=== PATIENT | male | born 1950 | race Caucasian/White ===

== ENCOUNTER → 2017-06-09 | Outpatient (CLI) | payer MEDICARE, OTHER ==
[~2017-06-09] VITALS: Ht 177.8 cm; Wt 109.3 kg
[2017-06-09] VITALS (11 sets, daily range): BP systolic 120–144; BP diastolic 60–85
[~2017-06-09] MED LIST: ALBUTEROL2.5 MG/31 INH; ASPIR 8181 MG PO; BRILINTA90 MG PO; CLARITIN10 MG PO; COZAAR 50 MG TA50 M2 PO; EYE HEALTH ADU1 EACH PO; LEVSIN0.125 MG PO; LIPITOR80 MG PO; LISINOPRIL-HCT1 EACH PO; NITROGLYCERIN0.4 MG SUBLING; TESSALON PERLE100 MG PO; ZANTAC 150MG T150 MG PO; ZOLOFT50 MG PO
[2017-06-09 08:09] LABS: HEMATOCRIT 41.9 % (42.0-52.0); HEMOGLOBIN 14.3 gm/dL (14.0-18.0); MCH 30.5 pg (26.0-34.0); MCHC 34.2 g/dL (28.0-37.0); MCV 89.3 fL (80.0-100.0); MPV 8.2 fl. (7.2-11.1); RBC 4.69 mil/uL (4.50-6.00); RDW-CV 14.4 % (10.5-14.5); WBC 8.3 thou/uL (4.0-11.0)
[2017-06-09 08:17] LABS: ANION GAP 11 mmol/L (7-16); BUN 20 mg/dL (7-18); CALCIUM 8.6 mg/dL (8.5-10.1); CHLORIDE 104 mmol/L (98-107); CO2 25 mmol/L (21-32); CREATININE 0.9 mg/dL (0.6-1.3); GLUCOSE 131 mg/dL (70-99); POTASSIUM 3.7 mmol/L (3.5-5.1); SODIUM 140 mmol/L (136-145)
[2017-06-09 08:18] LABS: APTT 28.7 Seconds (25.0-31.3); PROTIME 10.2 Seconds (9.20-11.50)
[2017-06-09 08:21] LABS: ALBUMIN 3.8 g/dL (3.4-5.0); ALKALINE PHOSPHATASE 110 U/L (46-116); CHOLESTEROL 143 mg/dL (<200); HDL CHOLESTEROL 44 mg/dL (>40); LDL CHOLESTEROL 75 mg/dL (<100); SGOT 28 U/L (15-37); SGPT 39 U/L (30-65); TC:HDL 3.3 Ratio (Not establshd); TOTAL BILIRUBIN 0.7 mg/dL (<0.1-1.0); TOTAL PROTEIN 7.3 g/dL (6.4-8.2); TRIGLYCERIDE 120 mg/dL (<150); VLDL 24 mg/dL (<40)
[2017-06-09 08:22] LABS: SERUM ASSESSMENT Clear
[2017-06-09 12:19] LABS: HEMOGLOBIN 13.9 gm/dL (14.0-18.0); MCH 30.4 pg (26.0-34.0); MCHC 33.9 g/dL (28.0-37.0); MCV 89.6 fL (80.0-100.0); MPV 7.9 fl. (7.2-11.1); RBC 4.58 mil/uL (4.50-6.00); RDW-CV 14.6 % (10.5-14.5); WBC 7.9 thou/uL (4.0-11.0)
--- NOTE | 2017-06-09 17:28 | EKG ---
[place] [address] ELECTROCARDIOGRAM REPORT Name: MAURIZIO FRASER Room: [facility]#: [id number] Admission: 06/09/17 Attend Phys: Lewis Chapa MD, F Discharge: Date of : 52 Report #: [id number] THIS REPORT FOR: //name// [facility] Test Date: 2017-06-09 Test Time: 10:53:20 Pat Name: MAURIZIO FRASER Department: Room: Gender: M Manpower Development Specialist: : 1950 Requested By: Lewis Chapa Order Number: [id number] Dante MD: Lewis Chapa Measurements Intervals [place] Rate: 51 P: 34 ID: 169 QRS: -41 QRSD: 96 T: 56 QT: 443 QTc: 409 Interpretive Statements Sinus bradycardia consider Inferior infarct, old Compared to ECG 02/05/2017 07:29:19 no change Electronically Signed On 06-09-2017 17:28:05 CDT by Lewis Chapa [email or web address] <ELECTRONICALLY SIGNED> By: Lewis Chapa MD, [facility] 06/09/17 1728 1053 52 Lewis Chapa MD, FACC /EPI
--- NOTE | 2017-06-09 18:50 | CARD ---
[address] [address] CARDIAC CATH REPORT Name: MAURIZIO FRASER Room: [facility] JAYA SalazarDennys#: [id number] Admission: 06/09/17 Attend Phys: Lewis Chapa MD, F Discharge: Date of : 52 Report #: [id number] THIS REPORT FOR: //name// APPROVED REPORT Study performed: 06/09/2017 07:48:10 Patient Details Patient Status: Out-Patient Room #: The patient is a 66 year-old male Event Personnel Lewis Chapa Chain Person, June Regalado RN Rod Buster, Jaleesa Fried Monitor, Becky Monroy RTR Scrub Procedures Performed Art Access - R radial artery , Left Heart Catheterization, Selective Right and Left Coronary Angiography, PTCA with Stenting Indication Dyspnea, Chest pain Risk Factors Hypercholesterolemia Previous Procedures/Diagnoses Previous PCI Admission/Lab Medications/Medications given during procedure Heparin Unfract. Procedure Narrative The patient was brought electively to the Cardiac Catheterization Laboratory and was prepped and draped in a sterile manner. The right wrist was infiltrated with 1% Lidocaine subcutaneous anesthesia. A Slender Glidesheath sheath was inserted into the right radial artery. Coronary angiography was performed using coronary diagnostic catheters. The right coronary system was accessed and visualized with a Diagnostic JR 4 6fr catheter. The left coronary system was accessed and visualized with a Diagnostic JL 4 6fr catheter. The left ventricle was accessed and visualized with a Diagnostic catheter. Left ventricular/Aortic Valve gradient assessed via catheter pullback. Left ventriculogram was performed in PIERRE projection. Closure device was deployed with a 6 Fr Vasc-Band Lng 27cm[place] [address] CARDIAC CATH REPORT Name: MAURIZIO FRASER [id number] Admission: 06/09/17 Attend Phys: Lewis Chapa MD, F Discharge: Date of : 52 Report #: [id number] patient tolerated the procedure well and there were no complications associated with the procedure. There was no hematoma. Intraoperative Conscious Sedation Sedation start time: 8:45 Case end Time: 9:34 Versed 2 mg Fluoro Time: 7.3 minutes Dose: DAP 031629 cGycm2 2003.67 mGy Contrast Type and Amount: Omnipaque 240 ml Coronary Angiography The patient's coronary anatomy is right dominant. Diagnostic Cath Left Main 0% stenosis LAD stent in the proximal lad had no restenosis. mid lad had a 60% stenosis Circumflex 80% stenosis noted in the mid circumflex prior to the takeoff of a distal posterolateral branch OM1 stent in the mid first OM had no restenosis Right Coronary abnormal anterior takeoff from the right cusp. 40% ostial stenosis and 60% mid stenosis Ramus proximal stents had no restenosis Left Ventriculography The left ventricle is normal in size with normal contractility. The left ventricular ejection fraction is estimated to be 60-65%. Left ventricular wall motion abnormalities are not present. There is no mitral insufficiency. Hemodynamics The aortic pressure is 111/69 mmHg with a mean of mmHg. The left ventricular pressure is 104/3 mmHg with a mean of mmHg. The left ventricular end diastolic pressure is 8 mmHg. There was no gradient across the aortic valve upon pullback. Pullback from the left ventricle to the aorta revealed no gradient across the aortic valve. PCI Technique Lesion Anticoagulation was achieved with Heparin. pt had been on brilinta and asa prior to admission Percutaneous coronary intervention was performed on the mid circumflex artery segment. The lesion stenosis prior to intervention was 80% with JOSE 3 flow. A 6FR XB 3.5 100CM Guide Catheter was used to engage the LCA ostium. A IG: ST[place]EN 190[address] [place] [address] CARDIAC CATH REPORT Name: MAURIZIO FRASER Room: [facility] JAYA LermaDavid#: [id number] Admission: 06/09/17 Attend Phys: Lewis Chapa MD, F Discharge: Date of : 51 Report #: [id number] Interventional Guidewire was used to cross the lesion. STENT DEPLOYMENT A drug-eluting stent Xience Alpine RX 2.25X12 was inserted and inflated up to 8.00atm for 13seconds. Repeat angiography revealed the following post-stent deployment results: 0% stenosis. Additional Inflation: 8.00atm for 15seconds. Additional Inflation: 8.00atm for 10seconds. Final angiography reveals 0 % stenosis with JOSE 3 flow. Conclusion 1. no restenosis of stents noted in the lad, ramus branch, and marginal branch of the circumflex 2. successful placement of a drug eluting stent in the mid circumflex Recommendations Aggressive Medical Therapy <ELECTRONICALLY SIGNED> By: Lewis Chapa MD, [facility] 06/09/171849 49 49Lewis Chapa MD, [facility] /INF
== END | disposition home or self-care (01) ==
LOC: M.CL 07:23
PROVIDERS: Internal Medicine Cardiovascular Disease
DX: I25.10 Atherosclerotic heart disease of native coronary artery without angina pectoris (principal); I10 Essential (primary) hypertension; E78.00 Pure hypercholesterolemia, unspecified; Z88.8 Allergy status to other drugs, medicaments and biological substances; Z79.82 Long term (current) use of aspirin; Z79.899 Other long term (current) drug therapy

== ENCOUNTER 2017-06-18 15:10 | Inpatient (IN) | payer MEDICARE, OTHER ==
[~2017-06-18] VITALS: Ht 177.8 cm; Wt 106.1 kg
[2017-06-18 16:45] VITALS: BP 133/56
[2017-06-18 17:29] LABS: APTT 29.4 Seconds (25.0-31.3); INR 1.2; PROTIME 11.2 Seconds (9.20-11.50)
[2017-06-18 17:44] LABS: ANION GAP 13 mmol/L (7-16); BUN 23 mg/dL (7-18); CALCIUM 8.5 mg/dL (8.5-10.1); CHLORIDE 101 mmol/L (98-107); CHOLESTEROL 142 mg/dL (<200); CO2 24 mmol/L (21-32); CREATININE 1.1 mg/dL (0.6-1.3); GLUCOSE 91 mg/dL (70-99); HDL CHOLESTEROL 40 mg/dL (>40); LDL CHOLESTEROL 82 mg/dL (<100); POTASSIUM 3.8 mmol/L (3.5-5.1); SODIUM 138 mmol/L (136-145); TC:HDL 3.6 Ratio (Not establshd); TRIGLYCERIDE 100 mg/dL (<150); VLDL 20 mg/dL (<40)
[2017-06-18 17:46] LABS: SERUM ASSESSMENT Clear
[2017-06-18 18:00] VITALS: BP 129/69
[2017-06-18 20:00] VITALS: BP 130/65
[2017-06-18 22:00] VITALS: BP 135/86
[2017-06-19] VITALS (16 sets, daily range): BP systolic 105–159; BP diastolic 51–90
--- NOTE | 2017-06-19 13:47 | CARD ---
[address] [address] CARDIAC CATH REPORT Name: MAURIZIO FRASER Room: [address] IN M.R.#: [id number] Admission: 06/18/17 Attend Phys: Joe Perez MD, Discharge: Date of : 51 Report #: [id number] THIS REPORT FOR: //name// APPROVED REPORT Study performed: 06/19/2017 09:31:10 Patient Details Patient Status: In-Patient Room #: ICU7 The patient is a 66 year-old male Event Personnel Joe Perez Industrial Engineering, June Regalado RN Recycling Operations Manager, Marsha Whitehead RN Monitor, Jackson Hyatt (R) Scrub Procedures Performed Art Access - L femor, Left Heart Catheterization, Selective Left Coronary Angiography, PTCA with Stenting to Mid Circumflex with additional ; left heart catheterization and selective coronary arteriography, PTCA with Stenting to Mid to Distal LAD Indication Unstable angina Risk Factors Family History, Hypercholesterolemia, Hypertension Previous Procedures/Diagnoses Previous PCI Admission/Lab Medications/Medications given during procedure Ticagrelor PO 180 mg, Aspirin PO 81 mg, Angiomax Drip IV 37.4 ml per hr Procedure Narrative The patient was brought electively to the Cardiac Catheterization Laboratory and was prepped and draped in a sterile manner. The right femoral was infiltrated with 2% Lidocaine subcutaneous anesthesia. A Dickinson 6 FR sheath was inserted into the right femoral artery. Coronary angiography was performed using coronary diagnostic catheters. The right coronary system was accessed and visualized with a Diagnostic catheter. The left coronary system was accessed and visualized with a JL5 6frDiagnostic catheter. [place] [address] CARDIAC CATH REPORT Name: MAURIZIO FRASER Room: [address] IN [facility]#: [id number] Admission: 06/18/17 Attend Phys: Joe Perez MD, Discharge: Date of : 51 Report #: [id number] accessed and visualized with a Straight Pig 6fr catheter. Left ventricular/Aortic Valve gradient assessed via catheter pullback. Pre-demployment femoral angiogram was performed . The patient tolerated the procedure well and there were no complications associated with the procedure. There was no hematoma. Intraoperative Conscious Sedation Sedation start time: 10:37 Case end Time: 11:44 Fentanyl 75 mcg Fluoro Time: 16.9 minutes Dose: 3217 mGy Contrast Type and Amount: Visipaque 450 ml Hemodynamics The aortic pressure is 123/62 mmHg with a mean of 83 mmHg. The left ventricular pressure is 124/2 mmHg with a mean of mmHg. The left ventricular end diastolic pressure is 4 mmHg. There was no gradient across the aortic valve upon pullback. PCI Technique Lesion Anticoagulation was achieved with Angiomax. Percutaneous coronary intervention was performed on the mid circumflex artery segment. The lesion stenosis prior to intervention was 80% with JOSE 3 flow. A 6FR XB 3.5 100CM Guide Catheter was used to engage the ostium. A BMW 190cm Interventional Guidewire was used to cross the lesion. STENT DEPLOYMENT A drug-eluting stent Xience Alpine RX 2.25X15 was inserted and inflated up to 8.00atm for 12seconds. Additional Inflation: 11.00atm for 12seconds. Additional Inflation: 12.00atm for 9seconds. Final angiography reveals 0 % stenosis with JOSE 3 flow. PCI Technique Lesion 2 Percutaneous Coronary Intervention was performed on the mid left anterior descending artery segment. The lesion stenosis prior to intervention was 75% with JOSE 3 flow. A BMW 190cm Interventional Guidewire was used to cross the lesion. Stent Deployment A drug-eluting stent Xience Alpine RX 2.75X12 was inserted and inflated up to 14.00atm for 13seconds. Additional Inflation: 17.00atm for 11seconds. Additional Inflation: 18.00atm for 13seconds. [place] [address] CARDIAC CATH REPORT Name: MAURIZIO FRASER Room: [address] IN M.R.#: [id number] Admission: 06/18/17 Attend Phys: Joe Perez MD, Discharge: Date of : 52 Report #: [id number] Final angiography reveals 10 % stenosis with JOSE 3 flow. Conclusion #1 significant coronary artery disease characterized by the following: A 20% proximal and 80% mid LAD stenosis, B 30% proximal and 80% mid circumflex stenosis just prior to a previously deployed stent, C dominant right coronary artery with 40% proximal and mid vessel narrowing, D 10% ramus intermedius narrowing with widely patent proximal stent #2 normal left-sided hemodynamic study #3 successful percutaneous coronary intervention with deployment of drug-eluting stent at site of 80% mid circumflex proximal narrowing with 0% residual narrowing and JOSE-3 flow the distal vessel #4 successful percutaneous coronary intervention with deployment of drug-eluting stent at site of 80 % mid LAD stenosis with 10% residual narrowing following stent deployment and JOSE-3 flow the distal vessel. Recommendations Cardiac Rehabilitation Referral Aggressive Medical Therapy Medications Administered Aspirin (any) Ticagrelor Angiomax bolus and infusion Diagnostic Cath Approved by: Joe Perez MD Date/Time: 06/19/17 at 1345 hrs. <ELECTRONICALLY SIGNED> By: Joe Perez MD, FACC 06/19/17 1346 1346 1346Joe Perez MD, FAC /INF
[2017-06-20] VITALS: BP 133/61
[2017-06-20 04:00] VITALS: BP 118/57
[2017-06-20 05:07] LABS: HEMATOCRIT 36.6 % (42.0-52.0); HEMOGLOBIN 12.3 gm/dL (14.0-18.0); MCH 30.4 pg (26.0-34.0); MCHC 33.7 g/dL (28.0-37.0); MCV 90.3 fL (80.0-100.0); MPV 8.3 fl. (7.2-11.1); RBC 4.06 mil/uL (4.50-6.00); RDW-CV 14.8 % (10.5-14.5); WBC 10.9 thou/uL (4.0-11.0)
[2017-06-20 06:12] LABS: ALBUMIN 3.4 g/dL (3.4-5.0); CALCIUM 8.1 mg/dL (8.5-10.1); POTASSIUM 3.8 mmol/L (3.5-5.1); TOTAL BILIRUBIN 0.8 mg/dL (<0.1-1.0); TOTAL PROTEIN 6.1 g/dL (6.4-8.2); TROPONIN-I LEVEL 0.17 ng/mL (<0.06)
[2017-06-20 08:18] VITALS: BP 136/66
--- NOTE | 2017-06-20 09:56 | H ---
[address] [address] HISTORY AND PHYSICAL Name: MAURIZIO FRASER Room: [address] IN M.R.#: [id number] Admission: 06/18/17 Attend Phys: Joe Perez MD, Discharge: Date of : 51 Report #: [id number] THIS REPORT FOR: //name// CC: Alo Perez DATE OF SERVICE: 06/18/2017 LOCATION: The patient in ICU #7. HISTORY OF PRESENT ILLNESS: The patient is a very pleasant 66-year-old male with complex coronary artery disease, status post multiple prior percutaneous coronary interventions. Most recently, he underwent intervention with deployment of one stent in the posterior division of the circumflex. Since discharge, he has noted recrudescence of chest pain responsive to nitro, typical of his prior angina. He has been taking nitroglycerin off and on since this past week when the prior stent was deployed. The patient has been compliant with dual antiplatelet therapy and additional cardiac medicines. His cardiac history is remarkable for hypertension, hypercholesterolemia and weight excess. His confluent cardiac regimen includes aspirin 81 mg daily, atorvastatin 80 mg daily, losartan 50 mg daily, p.r.n. sublingual nitroglycerin, ticagrelor or Brilinta 90 mg b.i.d., Imdur 30 mg daily, Ranexa 1000 mg b.i.d. PAST MEDICAL HISTORY: Remarkable for hypercholesterolemia, hypertension and weight excess. PAST SURGICAL HISTORY: Remarkable for prior carpal tunnel release, cholecystectomy. REVIEW OF SYSTEMS: Remarkable for the following: CARDIAC: He describes intermittent chest pain suggestive of unstable angina since discharge this past week. PSYCHIATRIC: There is no history of behavioral abnormalities. PHYSICAL EXAMINATION: GENERAL: Demonstrates a mildly distressed, overweight middle-aged male. VITAL SIGNS: Blood pressure 140/70, pulse rate is 75, respirations are 18 per minute. NECK: Jugular venous pressure is normal. CHEST: Clear. CARDIAC: Reveals normal first and second heart sounds with a question of S[address] [place] [address] HISTORY AND PHYSICAL Name: MAURIZIO FRASER Room: [address] IN .R.#: [id number] Admission: 06/18/17 Attend Phys: Joe Perez MD, Discharge: Date of : 52 Report #: [id number] gallop. ABDOMEN: Moderately obese. EXTREMITIES: Without edema with intact femoral, pedal and radial pulses. IMPRESSION: 1. Unstable angina. 2. Status post multiple prior percutaneous coronary interventions, most recently one week ago, the posterior division of the circumflex. 3. Complex coronary artery disease as recently defined. 4. Hypertension. 5. Hypercholesterolemia. 6. Weight excess. 7. History of mood disorder. RECOMMENDATIONS: 1. IV nitroglycerin, IV heparin during the night. 2. Would plan recatheterization in the a.m., 06/19/2017 with strong consideration of stenting just proximal to the previously deployed stent in the posterior division of the circumflex in the mid to distal LAD at the site of moderately severe stenosis. This has been discussed with the patient and family. Critical care time is 32 minutes from 1730 to 1802. <ELECTRONICALLY SIGNED> By: Joe Perez MD, FACC 06/20/17 0956 1803 1824Joe Perez MD, FACC /nt
--- NOTE | 2017-06-20 16:53 | EKG ---
[place] [address] ELECTROCARDIOGRAM REPORT Name: MAURIZIO FRASER Room: [address] [place] IN M.R.#: [id number] Admission: 06/18/17 Attend Phys: Joe Perez MD, Discharge: 06/20/17 Date of : 52 Report #: [id number] THIS REPORT FOR: //name// [facility] Test Date: 2017-06-19 Test Time: 12:56:12 Pat Name: MAURIZIO FRASER Department: Room: [facility] Gender: Furnace Checker: KERVIN : 1950 Requested By: Joe Perez Order Number: [id number] Dante MD: Mark Anthony Kowalski Measurements Intervals [place] Rate: 46 P: 41 UT: 170 QRS: -21 QRSD: 94 T: 44 QT: 461 QTc: 404 Interpretive Statements Sinus bradycardia Borderline left axis deviation Baseline wander in lead(s) V1,V6 Compared to ECG 06/09/2017 10:53:20 Myocardial infarct finding no longer present Electronically Signed On 06-20-2017 16:53:00 CDT by Mark Anthony Kowalski [email or web address] <ELECTRONICALLY SIGNED> By: Mark Anthony Kowalski MD, FACC 06/20/17 1653 1256 1256 Mark Anthony Kowalski MD, FAC /EPI
--- NOTE | 2017-06-20 16:59 | EKG ---
[place] [address] ELECTROCARDIOGRAM REPORT Name: MAURIZIO FRASER Room: [address] DIS IN M.R.#: [id number] Admission: 06/18/17 Attend Phys: Joe Perez MD, Discharge: 06/20/17 Date of : 52 Report #: [id number] THIS REPORT FOR: //name// [facility] Test Date: 2017-06-20 Test Time: 10:41:42 Pat Name: MAURIZIO FRASER Department: Room: [facility] Gender: Immigration Coordinator: NATI : 1950 Requested By: Joe Perez Order Number: [id number] Reading MD: Mark Anthony Kowalski Measurements Intervals [place] Rate: 59 P: 55 CO: 158 QRS: -32 QRSD: 96 T: 64 QT: 424 QTc: 420 Interpretive Statements Sinus rhythm Left axis deviation Compared to ECG 06/09/2017 10:53:20 Left-axis deviation now present Sinus bradycardia no longer present Myocardial infarct finding no longer present Electronically Signed On 06-20-2017 16:59:26 CDT by Mark Anthony Kowalski [email or web address] <ELECTRONICALLY SIGNED> By: Mark Anthony Kowalski MD, FACC 06/20/17 1659 1041 1041 Mark Anthony Kowalski MD, FAC /EPI
--- NOTE | 2017-06-24 15:01 | D ---
[address] [address] DISCHARGE SUMMARY Name: MAURIZIO FRASER Room: [address] IN M.R.#: [id number] Admission: 06/18/17 Attend Phys: Joe Perez MD, Discharge: 06/20/17 Date of : 52 Report #: [id number] THIS REPORT FOR: //name// CC: Alo Perez DATE OF SERVICE: 06/20/2017 FINAL DISCHARGE DIAGNOSES: 1. Unstable angina. 2. Status post percutaneous coronary intervention of the mid circumflex and mid left anterior descending. 3. Hypertension. 4. Hypercholesterolemia. 5. Moderate weight excess. 6. Gastroesophageal reflux disease. PROCEDURES: 06/19/2017 -- left heart catheterization, selective coronary arteriography and percutaneous coronary intervention to the mid circumflex and mid LAD with drug-eluting stents deployed at both sites. The patient is a 66-year-old male with underlying coronary artery disease, status post multiple prior percutaneous coronary interventions, most recently 1 week ago to the mid circumflex. He developed recurrent chest pain typical of his prior angina, which was nitrate responsive, with an increase in frequency and severity of episodes. In this context, he was hospitalized on 06/18/2017. There was no evidence for acute myocardial injury. He was taken to the brush clearing laborer on 06/19 and that study revealed a 90% mid circumflex stenosis just prior to previously deployed stent with 75-80% mid LAD narrowing. I deployed one 2.25 x 15 mm Xience Alpine drug-eluting stent in the posterior division of the circumflex in the mid portion and one 2.75 x 12 mm Xience Alpine drug-eluting stent in the mid LAD. There was 0 and 10% residual narrowing following stent deployment at the respective sites with JOSE 3 flow of the distal circulation. The patient did well post-procedurally with good hemostasis at the right femoral site of catheterization. Hemoglobin stable, renal function parameters were normal. He ambulated in the [place] without difficulty with good hemostasis at the right femoral site of catheterization. He was discharged to home on 06/20/2017 on the following medications: supplement, aspirin 81 mg daily, atorvastatin 80 mg daily, loratadine 10 mg daily, losartan 50 mg daily, ranitidine 150 mg b.i.d., Zoloft 100 mg daily, ticagrelor 90 mg b.i.d., Tessalon Perles 100 mg capsule t.i.d. Hyoscyamine sulfate or Levsin 0.125 mg every 4 hours as needed [place] [address] DISCHARGE SUMMARY Name: MAURIZIO FRASER Room: [address] [place] M.R.#: [id number] Admission: 06/18/17 Attend Phys: Joe Perez MD, Discharge: 06/20/17 Date of : 52 Report #: [id number] nitroglycerin. The patient is scheduled to return to see our nurse practitioner on 06/28/[address] Mauricio in mid June of this year. Thus, the patient is discharged to home in stable condition on the aforementioned medications, with followup as iterated above. The patient is discharged from [facility] on 06/20/2017. <ELECTRONICALLY SIGNED> By: Joe Perez MD, FACC 06/24/17 1501 1022 1233Joalberto Perez MD, FACC /nt
== END 2017-06-20 11:15 | disposition home or self-care (01) | DRG 247 ==
LOC: M.ICU 15:10 → M.2W 06-19 17:21
PROVIDERS: ADMIT Internal Medicine
PROC: B2111ZZ Fluoroscopy of Multiple Coronary Arteries using Low Osmolar Contrast (ICD-10-PCS; principal; 2017-06-19)
PROC: 4A023N7 Measurement of Cardiac Sampling and Pressure, Left Heart, Percutaneous Approach (ICD-10-PCS; principal; 2017-06-19)
PROC: 027135Z Dilation of Coronary Artery, Two Arteries with Two Drug-eluting Intraluminal Devices, Percutaneous Approach (ICD-10-PCS; principal; 2017-06-19)
DX: I25.110 Atherosclerotic heart disease of native coronary artery with unstable angina pectoris (principal); I10 Essential (primary) hypertension; E78.00 Pure hypercholesterolemia, unspecified; K21.9 Gastro-esophageal reflux disease without esophagitis; E66.09 Other obesity due to excess calories; F39 Unspecified mood [affective] disorder; Z68.33 Body mass index [BMI] 33.0-33.9, adult; Z79.02 Long term (current) use of antithrombotics/antiplatelets; Z79.82 Long term (current) use of aspirin; Z79.899 Other long term (current) drug therapy